=== PATIENT | male | born 1995 | race Two or more races ===

== ENCOUNTER 2024-08-28 07:26 | Emergency (ER) | payer OTHER ==
[~2024-08-28] VITALS: Ht 175.3 cm; Wt 90.8 kg
[2024-08-28] MEDS ORDERED: MUPI2CRE17 EX (07:52)
[2024-08-28] MEDS ORDERED: CEPH500C PO (07:52)
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
[2024-08-28 08:04] VITALS: BP 152/104; PULSE 63; RESP 20; TEMP 97.6; O2SAT 98
== END 2024-08-28 08:04 | disposition home or self-care (01) ==
LOC: ER 07:26
DX: S00.211A Abrasion of right eyelid and periocular area, initial encounter (principal); W22.8XXA Striking against or struck by other objects, initial encounter; Y93.89 Activity, other specified; Y92.89 Other specified places as the place of occurrence of the external cause; Y99.8 Other external cause status